=== PATIENT | female | born 1995 | race Hispanic/Latino ===

== ENCOUNTER → 2017-05-23 | Outpatient (CLI) | payer OTHER ==
[~2017-05-23] MED LIST: LAMICTAL XR50 MG PO
--- NOTE | 2017-05-23 18:00 | Diagnostic Imaging Report ---
PROCEDURE:X-RAY LUMBAR SPINE, TWO VIEWS COMPARISON:None. INDICATIONS:BACK APIN FINDINGS: There are five lumbar-type vertebral bodies. The vertebral bodies are well-aligned without evidence of spondylolisthesis. Questionable L5 pars defect. There are no fractures, lytic or blastic lesions. The disc-space heights are well-maintained. The sacroiliac joints are unremarkable. CONCLUSION: No acute abnormalities. Questionable L5 pars defect. Consider oblique views for further evaluation. Dictated by: Luis Holland M.D. on 05/23/2017 at 17:59 Electronically approved by: Luis Holland M.D. on 05/23/2017 at 17:59
--- NOTE | 2017-05-23 18:09 | Diagnostic Imaging Report ---
PROCEDURE:THORACIC SP 3V COMPARISON:None. INDICATIONS:BACK PAIN FINDINGS: No acute displaced fractures or dislocations. Normal alignment. Vertebral body heights and disc spaces are preserved. Visualized lungs and pleural are clear. Soft tissues are unremarkable. CONCLUSION: No acute radiographic abnormalities. Dictated by: Luis Holland M.D. on 05/23/2017 at 18:09 Electronically approved by: Luis Holland M.D. on 05/23/2017 at 18:09
== END ==
LOC: RAD 16:26
PROVIDERS: ATTEND Family Medicine
DX: M54.6 Pain in thoracic spine (principal); M54.5 Low back pain
CPT/HCPCS: 72072; 72100

== ENCOUNTER 2019-10-21 08:59 | Emergency (ER) | payer SELFPAY ==
[~2019-10-21] VITALS: Ht 165.1 cm; Wt 81.6 kg
[2019-10-21] MEDS ORDERED: PANTOPRAZOLE 40 MG 10ML VIAL IV ONE (09:02)
[2019-10-21] MEDS ORDERED: SODIUM CHLORIDE 0.9% 1000ML 1,000 ML IV STA (09:02)
[2019-10-21] MEDS ORDERED: ONDANSETRON HCL INJ 2MG/ML 2ML 2 MG/ML VIAL IV ONE (09:02)
[2019-10-21] MEDS ORDERED: DICYCLOMINE HCL 20 MG/2 ML VIAL IM ONE (09:15)
[2019-10-21 09:32] LABS: BASOPHILS % 0.3 % (0.0-1.0); EOSINOPHILS % 0.4 % (0.0-6.0); HEMATOCRIT 36.9 % (34.2-44.1); HEMOGLOBIN 13.2 g/dL (12.0-16.0); LYMPHOCYTES # (AUTO) 1.6 (1.0-3.2); LYMPHOCYTES % 17.5 % (18.0-39.1); MEAN CORPUSCULAR HEMOGLOBIN 29.7 pg (28-32); MEAN CORPUSCULAR HGB CONC 35.8 g/dL (31-35); MEAN CORPUSCULAR VOLUME 83.1 fL (81-99); MONOCYTES # (AUTO) 0.6 (0.2-0.8); MONOCYTES % 6.5 % (4.4-11.3); NEUTROPHILS # (AUTO) 6.7 (2.1-6.9); NEUTROPHILS % 74.9 % (38.7-80.0); PLATELET COUNT 223 x10e3/uL (140-360); RED BLOOD COUNT 4.44 x10e6/uL (3.6-5.1); RED CELL DISTRIBUTION WIDTH 13.2 % (11.7-14.4)
[2019-10-21 09:43] LABS: CLARITY,URINE CLEAR (CLEAR); COLOR,URINE YELLOW (YELLOW); LEUKOCYTE ESTERASE ,URINE NEGATIVE (NEGATIVE)
[2019-10-21 09:44] LABS: BILIRUBIN,URINE SMALL (NEGATIVE); KETONES,URINE 2+ (NEGATIVE); NITRITE,URINE NEGATIVE (NEGATIVE); PROTEIN,URINE DIPSTICK NEGATIVE (NEGATIVE); URINE UROBILINOGEN 0.2 mg/dL (0.2 - 1)
[2019-10-21 09:45] LABS: BACTERIA,URINE RARE /HPF; EPITHELIAL CELLS,URINE FEW /LPF
[2019-10-21 09:47] LABS: ALANINE AMINOTRANSFERASE 19 IU/L (0-55); ALBUMIN 4.5 g/dL (3.5-5.0); ALBUMIN/GLOBULIN RATIO 1.6 (0.8-2.0); ALKALINE PHOSPHATASE 75 IU/L (40-150); AMYLASE 69 U/L (25-125); BLOOD UREA NITROGEN 7 mg/dL (7-26); BUN/CREATININE RATIO 9 (6-25); CALCIUM 9.6 mg/dL (8.4-10.2); CARBON DIOXIDE 19 mmol/L (22-29); CHLORIDE 110 mmol/L (98-107); CREATINE KINASE 106 IU/L (29-168); CREATININE, SERUM 0.82 mg/dL (0.57-1.11); EST GLOMERULAR FILTRATION RATE > 60 ML/MIN (60-); GLUCOSE 105 mg/dL (74-118); LIPASE 23 U/L (8-78); SODIUM 138 mmol/L (136-145)
[2019-10-21 09:48] LABS: PREGNANCY TEST, URINE NEGATIVE (NEGATIVE)
[2019-10-21] MEDS ORDERED: IOPAMIDOL 370 MG/ML 200 ML INFUS..BTL INJ ONE (10:31)
[2019-10-21] MEDS ORDERED: SODIUM CHLORIDE 0.9% 50ML 50 ML ONE (10:31)
--- NOTE | 2019-10-21 10:41 | Emergency Department Note ---
History of Present Illnes History of Present Illness Chief Complaint: General Medicine Complaints History of Present Illness This is a 24 year old female patient reports abdomen pain with n/v for last two month worsening over last 3 days. Historian: Patient Arrival Mode: Car [employer] Required: No Onset (how long ago): month(s) (2) Location: abdomen Quality: pain Radiation: Reports non-radiation Severity: severe Onset quality: gradual Timing of current episode: intermittent Progression: waxing and waning Chronicity: recurrent Context: Denies recent illness Relieving factors: none Exacerbating factors: eating Associated symptoms: Reports nausea/vomiting; Denies chest pain, Denies shortness of breath Treatments prior to arrival: none Past Medical/Family History Physician Review I have reviewed the patient's past medical and family history. Any updates have been documented here. Past Medical History Recent Fever: No Clinical Suspicion of Infectio: No New/Unexplained Change in Ment: No Other Medical History: ANXIETY, DEPRESSION, BIPOLAR, TUBAL Other Surgery: right fallopian tube removed due to ectopic Social History Smoking Cessation: Former smoker Counseling Performed: Yes Any Illegal Drug Use: Yes (MARIJUANA) TB Exposure/Symptoms: No Physically hurt or threatened: No Family History Family history of heart diseas: No Other Last Tetanus: UNK Any Pre-Existing Lines (PICC,: No Review of Systems Review of Systems Constitutional: Reports no symptoms EENTM: Reports no symptoms Cardiovascular: Reports no symptoms Respiratory: Reports no symptoms Gastrointestinal: Reports as per HPI, Reports abdominal pain, Reports nausea, Reports vomiting Genitourinary: Reports no symptoms Musculoskeletal: Reports no symptoms Integumentary: Reports no symptoms Neurological: Reports no symptoms Psychological: Reports no symptoms Endocrine: Reports no symptoms Hematological/Lymphatic: Reports no symptoms Physical Exam Related Data Allergies: Coded Allergies: No Known Allergies (Unverified , 03/25/13) Triage Vital Signs Vital Signs Date Time Temp Pulse Resp B/P (MAP) Pulse Ox O2 Delivery O2 Flow Rate FiO2 10/21/19 09:08 100 10/21/19 09:08 98.3 89 24 Vital signs reviewed: Yes Physical Exam CONSTITUTIONAL Constitutional: Present well-developed, Present well-nourished HENT HENT: Present normocephalic, Present atraumatic, Present oropharynx clear/moist, Present nose normal HENT L/R: Present left ext ear normal, Present right ext ear normal EYES Eyes: Reports PERRL, Reports conjunctivae normal NECK Neck: Present ROM normal PULMONARY Pulmonary: Present effort normal, Present breath sounds normal CARDIOVASCULAR Cardiovascular: Present regular rhythm, Present heart sounds normal, Present capillary refill normal, Present normal rate GASTROINTESTINAL Abdominal: Present soft, Present bowel sounds normal, Present tender (MOD TENDERNESS OLU AND RLQ WITHOUT R/G, NEGATIVE ALEMAN'S AND NO RUQ TENDERNESS); Absent guarding, Absent rebound GENITOURINARY Genitourinary: Present exam deferred SKIN Skin: Present warm, Present dry MUSCULOSKELETAL Musculoskeletal: Present ROM normal NEUROLOGICAL Neurological: Present alert, Present oriented x 3, Present no gross motor or sensory deficits PSYCHOLOGICAL Psychological: Present mood/affect normal, Present judgement normal Results Laboratory Result Diagram: 10/21/1916 10/21/19 0916 Laboratory Laboratory Tests Test 10/21/19 09:16 White Blood Count 8.92 x10e3/uL (4.8-10.8) Red Blood Count 4.44 x10e6/uL (3.6-5.1) Hemoglobin 13.2 g/dL (12.0-16.0) Hematocrit 36.9 % (34.2-44.1) Mean Corpuscular Volume 83.1 fL (81-99) Mean Corpuscular Hemoglobin 29.7 pg (28-32) Mean Corpuscular Hemoglobin Concent 35.8 g/dL (31-35) Red Cell Distribution Width 13.2 % (11.7-14.4) Platelet Count 223 x10e3/uL (140-360) Neutrophils (%) (Auto) 74.9 % (38.7-80.0) Lymphocytes (%) (Auto) 17.5 % (18.0-39.1) Monocytes (%) (Auto) 6.5 % (4.4-11.3) Eosinophils (%) (Auto) 0.4 % (0.0-6.0) Basophils (%) (Auto) 0.3 % (0.0-1.0) Neutrophils # (Auto) 6.7 (2.1-6.9) Lymphocytes # (Auto) 1.6 (1.0-3.2) Monocytes # (Auto) 0.6 (0.2-0.8) Eosinophils # (Auto) 0.0 (0.0-0.4) Basophils # (Auto) 0.0 (0.0-0.1) Absolute Immature Granulocyte (auto 0.04 x10e3/uL (0-0.1) Urine Color Yellow (YELLOW) Urine Clarity Clear (CLEAR) Urine pH 7.5 (5 - 7) Urine Specific [place] 1.020 (1.010-1.025) Urine Protein Negative (NEGATIVE) Urine Glucose (UA) Negative (NEGATIVE) Urine Ketones 2+ (NEGATIVE) Urine Blood Trace (NEGATIVE) Urine Nitrite Negative (NEGATIVE) Urine Bilirubin Small (NEGATIVE) Urine Urobilinogen 0.2 mg/dL (0.2 - 1) Urine Leukocyte Esterase Negative (NEGATIVE) Urine RBC 6-10 /HPF (0-5) Urine WBC 6-10 /HPF (0-5) Urine Epithelial Cells Few /LPF (NONE) Urine Bacteria Rare /HPF (NONE) Urine Test Negative (NEGATIVE) Sodium Level 138 mmol/L (136-145) Potassium Level 4.0 mmol/L (3.5-5.1) Chloride Level 110 mmol/L (98-107) Carbon Dioxide Level 19 mmol/L (22-29) Anion Gap 13.0 mmol/L (8-16) Blood Urea Nitrogen 7 mg/dL (7-26) Creatinine 0.82 mg/dL (0.57-1.11) Estimat Glomerular Filtration Rate > 60 ML/MIN (60-) BUN/Creatinine Ratio 9 (6-25) Glucose Level 105 mg/dL (74-118) Calcium Level 9.6 mg/dL (8.4-10.2) Total Bilirubin 0.7 mg/dL (0.2-1.2) Aspartate Amino Transf (AST/SGOT) 16 IU/L (5-34) Alanine Aminotransferase (ALT/SGPT) 19 IU/L (0-55) Alkaline Phosphatase 75 IU/L (40-150) Creatine Kinase 106 IU/L (29-168) Creatine Kinase MB 1.30 ng/mL (0-5.0) Troponin I < 0.001 ng/mL (0-0.300) Total Protein 7.4 g/dL (6.5-8.1) Albumin 4.5 g/dL (3.5-5.0) Globulin 2.9 g/dL (2.3-3.5) Albumin/Globulin Ratio 1.6 (0.8-2.0) Amylase Level 69 U/L (25-125) Lipase 23 U/L (8-78) Lab results reviewed: Yes Imaging Imaging results reviewed: Yes Impressions EXAM: CT Abdomen and Pelvis WITH contrast INDICATION: rlq olu abd pain COMPARISON: None. TECHNIQUE: Abdomen and pelvis were scanned utilizing a multidetector helical scanner from the lung base to the pubic symphysis after administration of IV contrast. Coronal and sagittal reformations were obtained. Dose modulation, iterative reconstruction, and/or weight based adjustment of the mA/kV was utilized to reduce the radiation dose to as low as reasonably achievable. Routine protocol was performed. Scan was performed when during portal venous phase. IV CONTRAST: 150 mL of Omnipaque 300 ORAL CONTRAST: Water COMPLICATIONS: None RADIATION DOSE: Total DLP: 318.6 mGy-cm Estimated effective dose: (DLP x 0.015 x size factor) mSv CTDIvol has been reviewed. It is below the limits set by the Radiation Protocol Committee (RPC). FINDINGS: LINES and TUBES: None. LOWER THORAX: There is a 4 mm pulmonary nodule in right lower lobe (series 2, image 17) is nonspecific. HEPATOBILIARY: No focal hepatic lesions. No biliary ductal dilation. GALLBLADDER: No radio-opaque stones or sludge. No gallbladder wall thickening. SPLEEN: No splenomegaly. No focal splenic lesion. PANCREAS: No focal masses or ductal dilatation. ADRENALS: No adrenal nodules KIDNEYS/URETERS: Kidneys enhance symmetrically. No hydronephrosis. No cystic or solid mass lesions. No stones. GI TRACT: No abnormal distention, wall thickening, or evidence of bowel obstruction. Appendix is normal. PELVIC ORGANS/BLADDER: The bladder is unremarkable. Bilateral adnexal cystic structure could be physiologic for age. LYMPH NODES: No lymphadenopathy. VESSELS: No aortic aneurysm or dissection. PERITONEUM / RETROPERITONEUM: No free air or fluid. BONES: Unremarkable. SOFT TISSUES: Unremarkable. IMPRESSION: 1. Normal appendix. No CT findings to correlate with patient's right lower quadrant pain 2. A 4 mm pulmonary nodule in right lower lobe is nonspecific, could be infectious in etiology.. Please correlate with patient's lung symptoms and risk factors. Signed by: Catracho Gonsalez MD on 10/21/2019 11:13 AM Assessment & Plan Medical Decision Making MDM ABD PAIN, N/V WITH TENDERNESS OLU AND RLQ - CHECK CBC, CHEM, BEN/LIPASE, UA, PREG, CT ABD/PELVIS - R/O CHOLECYSTITIS, CHOLELITHIASIS, PANCREATITIS, APPENDICITIS, , DEHYDRATION, RENAL INSUFF, ELECTROLYTE ABNL Reassessment Reassessment PT IMPROVED, FEELS WELL. DC HOME, BENTYL/ZOFRAN, OTC PEPCID. F/U PCP AND DR Flory BERGER Assessment & Plan Final Impression: (1) Abdominal pain (2) Nausea & vomiting Depart Disposition: HOME, SELF-CARE Last Vital Signs Date Time Temp Pulse Resp B/P (MAP) Pulse Ox O2 Delivery O2 Flow Rate FiO2 10/21/19 09:08 98.3 89 24 142/112 100 Home Meds Reported Medications Lamotrigine (LAMICTAL XR) 50 Mg Tab.er.24, 50 MG PO BID 03/25/13 Medications in the ED Pantoprazole Sodium 40 mg ONCE ONCE IV Last administered on 10/21/19at 09:57; Admin Dose 40 MG; Start 10/21/19 at 09:02; Stop 10/21/19 at 09:31; Status DC Ondansetron HCl 4 mg ONCE ONCE IV Last administered on 10/21/19at 09:57; Admin Dose 4 MG; Start 10/21/19 at 09:02; Stop 10/21/19 at 09:31; Status DC Sodium Chloride 1,000 ml @ 0 mls/hr Q0M STAT IV Last administered on 10/21/19at 09:57; Admin Dose 999 MLS/HR; Start 10/21/19 at 09:02; Stop 10/21/19 at 09:27; Status DC Dicyclomine HCl 20 mg ONCE ONCE IM Last administered on 10/21/19at 09:57; Admin Dose 20 MG; Start 10/21/19 at 09:15; Stop 10/21/19 at 09:27; Status DC SKY PUTNAM MD Oct 21, 2019 10:40
--- NOTE | 2019-10-21 11:16 | Diagnostic Imaging Report ---
EXAM: CT Abdomen and Pelvis WITH contrast INDICATION: rlq olu abd pain COMPARISON: None. TECHNIQUE: Abdomen and pelvis were scanned utilizing a multidetector helical scanner from the lung base to the pubic symphysis after administration of IV contrast. Coronal and sagittal reformations were obtained. Dose modulation, iterative reconstruction, and/or weight based adjustment of the mA/kV was utilized to reduce the radiation dose to as low as reasonably achievable. Routine protocol was performed. Scan was performed when during portal venous phase. IV CONTRAST: 150 mL of Omnipaque 300 ORAL CONTRAST: Water COMPLICATIONS: None RADIATION DOSE: Total DLP: 318.6 mGy-cm Estimated effective dose: (DLP x 0.015 x size factor) mSv CTDIvol has been reviewed. It is below the limits set by the Radiation Protocol Committee (RPC). FINDINGS: LINES and TUBES: None. LOWER THORAX: There is a 4 mm pulmonary nodule in right lower lobe (series 2, image 17) is nonspecific. HEPATOBILIARY: No focal hepatic lesions. No biliary ductal dilation. GALLBLADDER: No radio-opaque stones or sludge. No gallbladder wall thickening. SPLEEN: No splenomegaly. No focal splenic lesion. PANCREAS: No focal masses or ductal dilatation. ADRENALS: No adrenal nodules KIDNEYS/URETERS: Kidneys enhance symmetrically. No hydronephrosis. No cystic or solid mass lesions. No stones. GI TRACT: No abnormal distention, wall thickening, or evidence of bowel obstruction. Appendix is normal. PELVIC ORGANS/BLADDER: The bladder is unremarkable. Bilateral adnexal cystic structure could be physiologic for age. LYMPH NODES: No lymphadenopathy. VESSELS: No aortic aneurysm or dissection. PERITONEUM / RETROPERITONEUM: No free air or fluid. BONES: Unremarkable. SOFT TISSUES: Unremarkable. IMPRESSION: 1. Normal appendix. No CT findings to correlate with patient's right lower quadrant pain 2. A 4 mm pulmonary nodule in right lower lobe is nonspecific, could be infectious in etiology.. Please correlate with patient's lung symptoms and risk factors. Signed by: Catracho Gonsalez MD on 10/21/2019 11:13 AM
== END 2019-10-21 11:56 | disposition home or self-care (01) ==
LOC: ER 09:03
DX: R10.31 Right lower quadrant pain (principal); R11.2 Nausea with vomiting, unspecified; F41.9 Anxiety disorder, unspecified; F31.9 Bipolar disorder, unspecified
CPT/HCPCS: 36415; 74177; 80053; 81001; 81025; 82150; 82550; 82553; 83690; 84484; 85025; 87086; 99283; C9113; J0500; J2405; J7030; Q9967

== ENCOUNTER 2019-11-27 03:37 | Inpatient (IN) | payer OTHER, SELFPAY ==
[~2019-11-27] VITALS: Ht 165.1 cm; Wt 77.1 kg
[2019-11-27] MEDS ORDERED: KETOROLAC TROMETHAMINE 30 MG/ML VIAL IV STA (03:43)
[2019-11-27] MEDS ORDERED: CEFTRIAXONE SOD 1 GM/NS 50 ML 50 ML IV ONE (03:45)
[2019-11-27] MEDS ORDERED: ACETAMINOPHEN 325 MG TAB PO ONE (03:45)
[2019-11-27] MEDS ORDERED: SODIUM CHLORIDE 0.9% 1000ML 1,000 ML IV ONE (03:45)
--- NOTE | 2019-11-27 03:53 | Emergency Department Note ---
History of Present Illnes History of Present Illness Chief Complaint: General Medicine Complaints History of Present Illness This is a 24 year old female PT WITH FEVER, BODY ACHES, LOWER ABD PAIN AND BACK PAIN SINCE LAST NIGHT, . Historian: Patient Arrival Mode: Car Onset (how long ago): day(s) (1) Location: LOWER ABD Quality: PAIN FEVER Radiation: Reports back Severity: moderate Onset quality: gradual Duration (how long): day(s) (1) Timing of current episode: constant Progression: worsening Context: Denies recent illness, Denies recent surgery, Denies trauma/injury Relieving factors: none Exacerbating factors: none Associated symptoms: Reports fever/chills, Reports other (ABD PAIN RLQ) Treatments prior to arrival: none Past Medical/Family History Physician Review I have reviewed the patient's past medical and family history. Any updates have been documented here. Past Medical History Recent Fever: Yes Clinical Suspicion of Infectio: No New/Unexplained Change in Ment: No Past Medical History: Anxiety, Depression Other Medical History: ANXIETY, DEPRESSION, BIPOLAR, TUBAL Other Surgery: right fallopian tube removed due to ectopic Social History Smoking Cessation: Never Smoker Counseling Performed: No Alcohol Use: None Any Illegal Drug Use: Yes (MARIJUANA) Physically hurt or threatened: No Other Last Tetanus: UNK Any Pre-Existing Lines (PICC,: No Review of Systems Review of Systems Constitutional: Reports as per HPI EENTM: Reports no symptoms Cardiovascular: Reports no symptoms Respiratory: Reports no symptoms Gastrointestinal: Reports as per HPI Genitourinary: Reports no symptoms Musculoskeletal: Reports no symptoms Integumentary: Reports no symptoms Neurological: Reports no symptoms Psychological: Reports no symptoms Endocrine: Reports no symptoms Hematological/Lymphatic: Reports no symptoms Physical Exam Related Data Allergies: Coded Allergies: No Known Allergies (Unverified , 03/25/13) Triage Vital Signs Vital Signs Date Time Temp Pulse Resp B/P (MAP) Pulse Ox O2 Delivery O2 Flow Rate FiO2 11/27/19 03:41 101.5 128 20 134/84 98 Room Air Vital signs reviewed: Yes Physical Exam CONSTITUTIONAL Constitutional: Present well-developed, Present well-nourished; Absent distressed HENT HENT: Present normocephalic, Present atraumatic, Present oropharynx clear/moist, Present nose normal HENT L/R: Present left ext ear normal, Present right ext ear normal EYES Eyes: Reports PERRL, Reports conjunctivae normal NECK Neck: Present ROM normal PULMONARY Pulmonary: Present effort normal, Present breath sounds normal CARDIOVASCULAR Cardiovascular: Present regular rhythm, Present heart sounds normal, Present capillary refill normal, Present tachycardia (120) GASTROINTESTINAL Abdominal: Present soft, Present bowel sounds normal, Present tender (SUPRAPUBIC, RLQ); Absent guarding, Absent mass, Absent rebound GENITOURINARY Genitourinary: Present exam deferred SKIN Skin: Present warm, Present dry MUSCULOSKELETAL Musculoskeletal: Present ROM normal NEUROLOGICAL Neurological: Present alert, Present oriented x 3, Present no gross motor or sensory deficits PSYCHOLOGICAL Psychological: Present mood/affect normal, Present judgement normal Results Laboratory Laboratory Laboratory Tests Test 11/27/19 03:50 11/27/19 03:45 Urine Color Yellow (YELLOW) Urine Clarity Cloudy (CLEAR) Urine pH 7 (5 - 7) Urine Specific [place] 1.020 (1.010-1.025) Urine Protein 2+ (NEGATIVE) Urine Glucose (UA) Negative (NEGATIVE) Urine Ketones Trace (NEGATIVE) Urine Blood Small (NEGATIVE) Urine Nitrite Negative (NEGATIVE) Urine Bilirubin Negative (NEGATIVE) Urine Urobilinogen 0.2 mg/dL (0.2 - 1) Urine Leukocyte Esterase Small (NEGATIVE) Urine RBC 6-10 /HPF (0-5) Urine WBC >50 /HPF (0-5) Urine Epithelial Cells Moderate /LPF (NONE) Urine Bacteria Many /HPF (NONE) Urine Test Negative (NEGATIVE) White Blood Count 18.72 x10e3/uL (4.8-10.8) Red Blood Count 4.64 x10e6/uL (3.6-5.1) Hemoglobin 13.8 g/dL (12.0-16.0) Hematocrit 39.1 % (34.2-44.1) Mean Corpuscular Volume 84.3 fL (81-99) Mean Corpuscular Hemoglobin 29.7 pg (28-32) Mean Corpuscular Hemoglobin Concent 35.3 g/dL (31-35) Red Cell Distribution Width 13.3 % (11.7-14.4) Platelet Count 205 x10e3/uL (140-360) Neutrophils (%) (Auto) 88.9 % (38.7-80.0) Lymphocytes (%) (Auto) 4.1 % (18.0-39.1) Monocytes (%) (Auto) 6.1 % (4.4-11.3) Eosinophils (%) (Auto) 0.0 % (0.0-6.0) Basophils (%) (Auto) 0.2 % (0.0-1.0) Neutrophils # (Auto) 16.7 (2.1-6.9) Lymphocytes # (Auto) 0.8 (1.0-3.2) Monocytes # (Auto) 1.1 (0.2-0.8) Eosinophils # (Auto) 0.0 (0.0-0.4) Basophils # (Auto) 0.0 (0.0-0.1) Absolute Immature Granulocyte (auto 0.13 x10e3/uL (0-0.1) Sodium Level 136 mmol/L (136-145) Potassium Level 4.0 mmol/L (3.5-5.1) Chloride Level 104 mmol/L (98-107) Carbon Dioxide Level 18 mmol/L (22-29) Anion Gap 18.0 mmol/L (8-16) Blood Urea Nitrogen 8 mg/dL (7-26) Creatinine 0.84 mg/dL (0.57-1.11) Estimat Glomerular Filtration Rate > 60 ML/MIN (60-) BUN/Creatinine Ratio 10 (6-25) Glucose Level 138 mg/dL (74-118) Lactic Acid Level 1.7 mmol/L (0.5-2.0) Calcium Level 9.8 mg/dL (8.4-10.2) Total Bilirubin 0.6 mg/dL (0.2-1.2) Aspartate Amino Transf (AST/SGOT) 18 IU/L (5-34) Alanine Aminotransferase (ALT/SGPT) 20 IU/L (0-55) Alkaline Phosphatase 83 IU/L (40-150) Total Protein 8.2 g/dL (6.5-8.1) Albumin 4.9 g/dL (3.5-5.0) Globulin 3.3 g/dL (2.3-3.5) Albumin/Globulin Ratio 1.5 (0.8-2.0) Lab results reviewed: Yes Imaging Imaging results reviewed: Yes Impressions Procedure: [id number] CT/CT ABDOMEN/PELVIS W Exam Date: 11/27/19 Exam Time: 0430 REPORT STATUS: Signed EXAM: CT Abdomen and Pelvis WITH contrast INDICATION: ^RLQ PAIN, FEVER ^[id number] ^0430 COMPARISON: CT dated 10/21/2019 TECHNIQUE: Abdomen and pelvis were scanned utilizing a multidetector helical scanner from the lung base to the pubic symphysis after administration of IV contrast. Coronal and sagittal reformations were obtained. Dose modulation, iterative reconstruction, and/or weight based adjustment of the mA/kV was utilized to reduce the radiation dose to as low as reasonably achievable. Routine protocol was performed. Scan was performed when during portal venous phase. IV CONTRAST: 100 mL of Isovue 370 ORAL CONTRAST: None COMPLICATIONS: None RADIATION DOSE: Total DLP: 328.08 mGy*cm Estimated effective dose: (DLP x 0.015 x size factor) mSv CTDIvol has been reviewed. It is below the limits set by the Radiation Protocol Committee (RPC). FINDINGS: LINES and TUBES: None. LOWER THORAX: 5 mm right lung base nodule, previously 4 mm. HEPATOBILIARY: No focal hepatic lesions. No biliary ductal dilation. GALLBLADDER: No radio-opaque stones or sludge. No wall thickening. SPLEEN: No splenomegaly. PANCREAS: No focal masses or ductal dilatation. ADRENALS: No adrenal nodules KIDNEYS/URETERS: Hypoenhancement of the right renal superior pole with mild adjacent fat stranding. No hydronephrosis. No cystic or solid mass lesions. No stones. GI TRACT: No abnormal distention, wall thickening, or evidence of bowel obstruction. Appendix is normal. PELVIC ORGANS/BLADDER: 4.4 cm left adnexal cyst. Bladder wall thickening, likely due to underdistention. LYMPH NODES: No lymphadenopathy. VESSELS: Unremarkable. PERITONEUM / RETROPERITONEUM: No free air. Trace pelvic free fluid, likely physiologic. BONES: Unremarkable. SOFT TISSUES: Unremarkable. IMPRESSION: 1. Right pyelonephritis. 2. Not significantly changed nonspecific right lung base nodule. 3. 4.4 cm left adnexal cyst. If clinically indicated, this can be further evaluated with pelvic ultrasound. Signed by: Dr. Natanael Giles MD on 11/27/2019 5:43 AM Dictated By: NATANAEL GILES MD 2 Transcribed By: STEVEN on 11/27/19542 COPY TO: CARTER JAMES MD~ Assessment & Plan Medical Decision Making MDM PT WITH RLQ PAIN, FEVER, CHILLS CBC, CMP, LACTIC ACID, BLOOD CULTURES, UA, PREG TEST, CT ABD.PELVIS ORDERED TO EVAL FOR LEUKOCYTOSIS, SEPSIS, UTI, PYELONEPHRITIS, KIDNEY STONE, APPENDICITIS, ELECTROLYTE ABNORMALITY TYLENOL 975 MG PO ORDERED ROCEPHIN 1 GRAM IV ORDERED TORADOL 30 MG IV ORDERED ROCEPHIN 1 GRAM IV ORDERED NS 1 LITER BOLUS IV ORDERED I SPOKE WITH DR BOBO ADMIT INPATIENT Assessment & Plan Final Impression: (1) Pyelonephritis (2) Leukocytosis Depart Disposition: ADMITTED Last Vital Signs Date Time Temp Pulse Resp B/P (MAP) Pulse Ox O2 Delivery O2 Flow Rate FiO2 11/27/19 03:41 101.5 128 20 134/84 98 Room Air Home Meds Reported Medications Lamotrigine (LAMICTAL XR) 50 Mg Tab.er.24, 50 MG PO BID 03/25/13 Medications in the ED Acetaminophen 975 mg ONCE ONCE PO ; Start 11/27/19 at 03:45; Stop 11/27/19 at 03:46; Status UNV Ceftriaxone Sodium 50 ml @ 100 mls/hr ONCE ONCE IV ; Start 11/27/19 at 03:45; Stop 11/27/19 at 04:14; Status UNV Sodium Chloride 1,000 ml @ 999 mls/hr Q1H1M ONCE IV ; Start 11/27/19 at 03:45; Stop 11/27/19 at 04:45 Ketorolac Tromethamine 30 mg ONCE STAT IV ; Start 11/27/19 at 03:43; Stop 11/27/19 at 03:44; Status UNV CARTER JAMES MD Nov 27, 2019 03:53
[2019-11-27 03:58] LABS: BASOPHILS % 0.2 % (0.0-1.0); HEMATOCRIT 39.1 % (34.2-44.1); HEMOGLOBIN 13.8 g/dL (12.0-16.0); LYMPHOCYTES # (AUTO) 0.8 (1.0-3.2); LYMPHOCYTES % 4.1 % (18.0-39.1); MEAN CORPUSCULAR HEMOGLOBIN 29.7 pg (28-32); MEAN CORPUSCULAR HGB CONC 35.3 g/dL (31-35); MEAN CORPUSCULAR VOLUME 84.3 fL (81-99); MONOCYTES # (AUTO) 1.1 (0.2-0.8); MONOCYTES % 6.1 % (4.4-11.3); NEUTROPHILS # (AUTO) 16.7 (2.1-6.9); NEUTROPHILS % 88.9 % (38.7-80.0); PLATELET COUNT 205 x10e3/uL (140-360); RED BLOOD COUNT 4.64 x10e6/uL (3.6-5.1); RED CELL DISTRIBUTION WIDTH 13.3 % (11.7-14.4)
[2019-11-27 04:00] LABS: BILIRUBIN,URINE NEGATIVE (NEGATIVE); CLARITY,URINE CLOUDY (CLEAR); COLOR,URINE YELLOW (YELLOW); LEUKOCYTE ESTERASE ,URINE SMALL (NEGATIVE); NITRITE,URINE NEGATIVE (NEGATIVE); PROTEIN,URINE DIPSTICK 2+ (NEGATIVE); URINE UROBILINOGEN 0.2 mg/dL (0.2 - 1)
[2019-11-27 04:01] LABS: KETONES,URINE TRACE (NEGATIVE)
[2019-11-27 04:03] LABS: PREGNANCY TEST, URINE NEGATIVE (NEGATIVE)
[2019-11-27 04:05] LABS: BACTERIA,URINE MANY /HPF; EPITHELIAL CELLS,URINE MODERATE /LPF; WBC,URINE (MAN) >50 /HPF (0-5)
[2019-11-27 04:09] LABS: ALBUMIN 4.9 g/dL (3.5-5.0)
[2019-11-27 04:18] LABS: ALANINE AMINOTRANSFERASE 20 IU/L (0-55); ALBUMIN/GLOBULIN RATIO 1.5 (0.8-2.0); ALKALINE PHOSPHATASE 83 IU/L (40-150); BLOOD UREA NITROGEN 8 mg/dL (7-26); BUN/CREATININE RATIO 10 (6-25); CALCIUM 9.8 mg/dL (8.4-10.2); CARBON DIOXIDE 18 mmol/L (22-29); CHLORIDE 104 mmol/L (98-107); CREATININE, SERUM 0.84 mg/dL (0.57-1.11); EST GLOMERULAR FILTRATION RATE > 60 ML/MIN (60-); GLUCOSE 138 mg/dL (74-118); SODIUM 136 mmol/L (136-145)
[2019-11-27] MEDS ORDERED: IOPAMIDOL 370 MG/ML 200 ML INFUS..BTL INJ ONE (04:33)
[2019-11-27] MEDS ORDERED: SODIUM CHLORIDE 0.9% 50ML 50 ML ONE (04:34)
--- NOTE | 2019-11-27 05:47 | Diagnostic Imaging Report ---
EXAM: CT Abdomen and Pelvis WITH contrast INDICATION: ^RLQ PAIN, FEVER ^[id number] ^0430 COMPARISON: CT dated 10/21/2019 TECHNIQUE: Abdomen and pelvis were scanned utilizing a multidetector helical scanner from the lung base to the pubic symphysis after administration of IV contrast. Coronal and sagittal reformations were obtained. Dose modulation, iterative reconstruction, and/or weight based adjustment of the mA/kV was utilized to reduce the radiation dose to as low as reasonably achievable. Routine protocol was performed. Scan was performed when during portal venous phase. IV CONTRAST: 100 mL of Isovue 370 ORAL CONTRAST: None COMPLICATIONS: None RADIATION DOSE: Total DLP: 328.08 mGy*cm Estimated effective dose: (DLP x 0.015 x size factor) mSv CTDIvol has been reviewed. It is below the limits set by the Radiation Protocol Committee (RPC). FINDINGS: LINES and TUBES: None. LOWER THORAX: 5 mm right lung base nodule, previously 4 mm. HEPATOBILIARY: No focal hepatic lesions. No biliary ductal dilation. GALLBLADDER: No radio-opaque stones or sludge. No wall thickening. SPLEEN: No splenomegaly. PANCREAS: No focal masses or ductal dilatation. ADRENALS: No adrenal nodules KIDNEYS/URETERS: Hypoenhancement of the right renal superior pole with mild adjacent fat stranding. No hydronephrosis. No cystic or solid mass lesions. No stones. GI TRACT: No abnormal distention, wall thickening, or evidence of bowel obstruction. Appendix is normal. PELVIC ORGANS/BLADDER: 4.4 cm left adnexal cyst. Bladder wall thickening, likely due to underdistention. LYMPH NODES: No lymphadenopathy. VESSELS: Unremarkable. PERITONEUM / RETROPERITONEUM: No free air. Trace pelvic free fluid, likely physiologic. BONES: Unremarkable. SOFT TISSUES: Unremarkable. IMPRESSION: 1. Right pyelonephritis. 2. Not significantly changed nonspecific right lung base nodule. 3. 4.4 cm left adnexal cyst. If clinically indicated, this can be further evaluated with pelvic ultrasound. Signed by: Dr. Natanael Giles MD on 11/27/2019 5:43 AM
[2019-11-27] MEDS ORDERED: ONDANSETRON HCL INJ 2MG/ML 2ML 2 MG/ML VIAL IV PRN (06:00)
[2019-11-27] MEDS ORDERED: MORPHINE SULFATE 2 MG/ML SYR 1ML IV PRN (06:00)
[2019-11-27] MEDS ORDERED: CEFTRIAXONE SOD 1 GM/NS 50 ML 50 ML IV SCH ×2 (06:00→20:00)
[2019-11-27] MEDS ORDERED: MORPHINE SULFATE INJ 4 MG/ML INJ 1ML ONE (06:22)
[2019-11-27] MEDS: SODIUM CHLORIDE 0.9% 1000ML 1,000 ML IV SCH ×2 (06:28→14:44)
--- NOTE | 2019-11-27 06:55 | NUR ---
bedside report received from Miguel Angel PABLO, pt is [id number], vital signs WNL, pain has improved significantly, no distress noted , side rails x 2, bed in lowest position, call light within reach
--- NOTE | 2019-11-27 06:56 | NUR ---
WALKING ROUNDS WITH XANDER PABLO
[2019-11-27] MEDS ORDERED: HYDROMORPHONE 1MG/1ML INJ IV NR (09:00)
--- NOTE | 2019-11-27 12:06 | NUR ---
regular diet tray requested from kitchen
[2019-11-27 13:55] VITALS: BP 128/88
--- NOTE | 2019-11-27 13:55 | NUR ---
bedside handoff to Teresa PABLO, was notified that patient's temperature was 100.2 prior to leaving the ED
--- NOTE | 2019-11-27 13:55 | NUR ---
RECEIVED REPORT FROM DRILLER BRAKE LINING. PT AWAKE, ALERT, AMBULATING EASILY AROUND THE ROOM, NO S/S DISTRESS. IN STABLE CONDITION.
[2019-11-27] MEDS ORDERED: CEFEPIME HCL 1 GM VIAL IV SCH (14:00)
[2019-11-27] MEDS: ACETAMINOPHEN 325 MG TAB PO PRN (14:21)
[2019-11-27 14:22] VITALS: BP 116/83
[2019-11-27] MEDS: CEFEPIME 1GM/NS 0.9% 50 ML 50 ML IV SCH ×2 (14:44→21:24)
[2019-11-27] MEDS ORDERED: DOCUSATE SODIUM 100 MG CAP PO PRN (15:00)
[2019-11-27] MEDS: IBUPROFEN 600 MG TAB PO PRN (15:54)
[2019-11-27 16:26] VITALS: BP 131/74
--- NOTE | 2019-11-27 19:19 | NUR ---
bedside shift report given to PM nurse. pt awake, alert, in stable condition.
[2019-11-27 20:00] VITALS: BP 109/71
[2019-11-27 21:00] VITALS: BP 109/71
[2019-11-27] MEDS: TRAMADOL HCL 50 MG TAB PO PRN (21:17)
[2019-11-27] MEDS: KETOROLAC TROMETHAMINE 30 MG/ML VIAL IV PRN (23:41)
[2019-11-28] VITALS (7 sets, daily range): BP systolic 114–134; BP diastolic 74–89
[2019-11-28] MEDS: IBUPROFEN 600 MG TAB PO PRN ×3 (04:00→21:24)
--- NOTE | 2019-11-28 04:05 | History and Physical ---
HISTORY OF PRESENT ILLNESS: This is a 24-year-old female, who came into the ED with complaints of right-sided flank pain and underlying dysuria. The patient's cultures had similar findings in the past with underlying pyelonephritis and UTI. She denies any recent trauma. She denies picking up of any heavy objects. The patient reports her flank pain that radiates from the right side down to her lower abdomen. She denies any chest pain, palpitation, nausea, or vomiting. She does have fever, chills. REVIEW OF SYSTEMS: Pertinent positives: Right-sided flank pain with underlying dysuria. The rest of the 14-point systems are reviewed with the patient and are negative. ALLERGIES: NO KNOWN DRUG ALLERGIES. HOME MEDICATIONS: She takes Lamictal. PAST MEDICAL HISTORY: History of seizures. PAST SURGICAL HISTORY: Reports none. PAST FAMILY HISTORY: None. PAST SOCIAL HISTORY: No drugs. No alcohol. PHYSICAL EXAMINATION: VITAL SIGNS: Temperature 98.6, pulse 82, respirations 20, blood pressure 100/78, and oxygen saturation is 100% on room air. GENERAL: Not in acute distress. Alert and oriented x3. Cooperative on examination. HEENT: Head; normocephalic and atraumatic. Eyes; pupils are equal, round, and reactive to light bilaterally extraocular movements are intact. Throat, no evidence of erythema or exudate in the posterior pharynx. Has poor dentition. NECK: Supple. Good range of motion. PULMONARY: Clear to auscultation bilaterally. No wheezing, rales, rhonchi, no crackles appreciated. CARDIOVASCULAR: Positive S1 and S2. No murmurs, rubs, or gallops. GI: Abdomen is soft, nondistended, and nontender to palpation. Bowel sounds present. MUSCULOSKELETAL: Strength is 5/5 throughout. SKIN: Tender to palpation in the left flank area in the right lower quadrant of the abdomen. LABORATORY STUDIES: White count 18, hemoglobin 13, hematocrit 29, and platelets 205. Chemistry; sodium 136, potassium 4.1, within normal range. Albumin is 4.9. Urinalysis consistent with a UTI . Urine cultures collected. CT of the abdomen and pelvis . IMPRESSION: 1. Right pyelonephritis with underlying urinary tract infection. 2. Nausea with decreased oral intake. 3. Leukocytosis, secondary to pyelonephritis. 4. Sepsis secondary to pyelonephritis with leukocytosis. 5. Right-sided flank pain. PLAN: At this time, continue with IV antibiotics. Add pain control with pain medication. We will also add some Toradol for anti-inflammatory properties. Get labs in the morning. Put on Lovenox for DVT prophylaxis. Continue with IV cefepime. Monitor blood and urine culture. Plan of care discussed with the patient at bedside, it seems to be more of a pyelonephritis at this time. Get morning labs. MD DU Mendez/EMBER /[id number]
[2019-11-28] MEDS: SODIUM CHLORIDE 0.9% 1000ML 1,000 ML IV SCH ×3 (04:21→21:23)
[2019-11-28] MEDS: CEFEPIME 1GM/NS 0.9% 50 ML 50 ML IV SCH (05:20)
[2019-11-28 06:42] LABS: BASOPHILS # (AUTO) 0.1 (0.0-0.1); BASOPHILS % 0.3 % (0.0-1.0); EOSINOPHILS % 0.1 % (0.0-6.0); HEMATOCRIT 32.8 % (34.2-44.1); HEMOGLOBIN 11.3 g/dL (12.0-16.0); LYMPHOCYTES % 5.6 % (18.0-39.1); MEAN CORPUSCULAR HEMOGLOBIN 29.7 pg (28-32); MEAN CORPUSCULAR HGB CONC 34.5 g/dL (31-35); MEAN CORPUSCULAR VOLUME 86.3 fL (81-99); MONOCYTES # (AUTO) 1.5 (0.2-0.8); MONOCYTES % 8.5 % (4.4-11.3); NEUTROPHILS # (AUTO) 15.4 (2.1-6.9); NEUTROPHILS % 84.9 % (38.7-80.0); PLATELET COUNT 156 x10e3/uL (140-360); RED CELL DISTRIBUTION WIDTH 13.4 % (11.7-14.4)
[2019-11-28] MEDS: KETOROLAC TROMETHAMINE 30 MG/ML VIAL IV PRN ×2 (06:42→16:21)
--- NOTE | 2019-11-28 07:05 | NUR ---
bedside shift report received from PM nurse. pt awake, alert, in stable condition, oriented X3, voices no complaints at this time.
[2019-11-28 07:12] LABS: ALANINE AMINOTRANSFERASE 17 IU/L (0-55); ALBUMIN 3.8 g/dL (3.5-5.0); ALBUMIN/GLOBULIN RATIO 1.4 (0.8-2.0); ALKALINE PHOSPHATASE 66 IU/L (40-150); ANION GAP 14.8 mmol/L (8-16); BLOOD UREA NITROGEN 5 mg/dL (7-26); BUN/CREATININE RATIO 6 (6-25); CALCIUM 8.5 mg/dL (8.4-10.2); CARBON DIOXIDE 17 mmol/L (22-29); CHLORIDE 111 mmol/L (98-107); CREATININE, SERUM 0.77 mg/dL (0.57-1.11); EST GLOMERULAR FILTRATION RATE > 60 ML/MIN (60-); GLUCOSE 153 mg/dL (74-118); POTASSIUM 3.8 mmol/L (3.5-5.1); SODIUM 139 mmol/L (136-145)
--- NOTE | 2019-11-28 07:46 | NUR ---
Patient endorsed to next shift for continuity of care.
[2019-11-28] MEDS: LAMOTRIGINE 50 MG PO SCH ×2 (09:00→16:21)
[2019-11-28] MEDS: ACETAMINOPHEN 325 MG TAB PO PRN ×2 (10:08→16:22)
[2019-11-28] MEDS: TRAMADOL HCL 50 MG TAB PO PRN (10:11)
[2019-11-28] MEDS: ONDANSETRON HCL INJ 2MG/ML 2ML 2 MG/ML VIAL IV PRN ×2 (11:36→17:57)
[2019-11-28] MEDS: MEROPENEM 500MG/ NS 50ML 50 ML IV SCH ×3 (16:21→21:21)
[2019-11-28] MEDS: ENOXAPARIN SOD INJ 40 MG/0.4 ML SYR SC SCH (16:21)
--- NOTE | 2019-11-28 21:30 | NUR ---
Unable to administer IV Merrem at scheduled time due to loss of IV access. Several unsuccessful attempts made to restart IV from nurse, charge nurse, and boarding house manager. Request made to restart IV with ultrasound guidance. Will continue to monitor.
[2019-11-29] VITALS (8 sets, daily range): BP systolic 117–137; BP diastolic 70–92
[2019-11-29] MEDS: ONDANSETRON HCL INJ 2MG/ML 2ML 2 MG/ML VIAL IV PRN ×3 (00:05→21:21)
[2019-11-29] MEDS: MEROPENEM 500MG/ NS 50ML 50 ML IV SCH ×2 (00:05→08:56)
[2019-11-29] MEDS: KETOROLAC TROMETHAMINE 30 MG/ML VIAL IV PRN ×2 (00:06→08:54)
--- NOTE | 2019-11-29 03:46 | Progress Note ---
DATE: 11/28/2019 Medicine Progress Note SUBJECTIVE: The patient reports still having some flank pain, had a fever this morning, but seems to be improving from today. PHYSICAL EXAMINATION: VITAL SIGNS: Temperature 99.1, pulse 96, respiratory rate is 18, blood pressure , pulse ox 100% on room air. GENERAL: In no acute distress. Alert and oriented x3. She is cooperative on exam. PULMONARY: Clear to auscultation bilaterally. No wheezing, rales, or rhonchi. No crackles appreciated. CARDIOVASCULAR: Positive S1 and S2. No murmurs, rubs, or gallops appreciated. ABDOMEN: Soft, nondistended, nontender to palpation. Bowel sounds present. She has mild tender to palpation in the right flank area. MUSCULOSKELETAL: Strength is 5/5 throughout. LABORATORY FINDINGS: Show white count was 18, hemoglobin , hematocrit 32.8, , sodium 139, potassium 3.8, chloride 111, bicarb 17, anion gap of 14, BUN is 5 and creatinine 0.77. LFTs within normal range. MICROBIOLOGY: Urine culture shows Gram-negative bacilli. Blood cultures, no growth to date. IMAGING STUDIES: Nothing new. IMPRESSION: 1. Right pyelonephritis with urinary tract infection. 2. Nausea with decreased oral intake-improving. 3. Leukocytosis, secondary to pyelonephritis. 4. Sepsis and pyelonephritis with leukocytosis. PLAN: At this time, she was febrile this morning. She is currently afebrile. Continue with IV antibiotics. Monitor cultures. Continue with pain control. Continue antibiotics IV Merrem as she still continues to have fever early this morning. Lovenox for DVT prophylaxis. Discussed plan of care with the patient and nursing staff at bedside. MD DU Mendez/MODL /[id number]
--- NOTE | 2019-11-29 04:41 | NUR ---
Pt has complaints of pain at IV site. IV site puffy and tender to touch. IV removed. Tip intact and no damage to catheter noted. Dr. Hammonds notified. New orders received for PICC line placement to continue IV antibiotic therapy.
[2019-11-29] MEDS: TRAMADOL HCL 50 MG TAB PO PRN ×2 (05:39→20:15)
[2019-11-29 07:13] LABS: BASOPHILS % 0.3 % (0.0-1.0); EOSINOPHILS % 0.2 % (0.0-6.0); HEMATOCRIT 30.2 % (34.2-44.1); HEMOGLOBIN 10.6 g/dL (12.0-16.0); LYMPHOCYTES # (AUTO) 0.8 (1.0-3.2); LYMPHOCYTES % 6.9 % (18.0-39.1); MEAN CORPUSCULAR HEMOGLOBIN 29.4 pg (28-32); MEAN CORPUSCULAR HGB CONC 35.1 g/dL (31-35); MEAN CORPUSCULAR VOLUME 83.9 fL (81-99); MONOCYTES % 8.3 % (4.4-11.3); PLATELET COUNT 170 x10e3/uL (140-360); RED CELL DISTRIBUTION WIDTH 13.2 % (11.7-14.4)
--- NOTE | 2019-11-29 07:23 | NUR ---
Pt has complaints of pain to the RUE in the area of the old IV site. Extremity warm to touch and tender. Dr. Hammonds informed. New orders received for RUE doppler to rule out dvt.
[2019-11-29 07:29] LABS: ANION GAP 14.1 mmol/L (8-16); BLOOD UREA NITROGEN < 5 mg/dL (7-26); CALCIUM 8.7 mg/dL (8.4-10.2); CARBON DIOXIDE 18 mmol/L (22-29); CHLORIDE 109 mmol/L (98-107); CREATININE, SERUM 0.67 mg/dL (0.57-1.11); EST GLOMERULAR FILTRATION RATE > 60 ML/MIN (60-); GLUCOSE 133 mg/dL (74-118); POTASSIUM 3.1 mmol/L (3.5-5.1); SODIUM 138 mmol/L (136-145)
[2019-11-29 07:41] LABS: BUN/CREATININE RATIO 7 (6-25)
--- NOTE | 2019-11-29 08:38 | Diagnostic Imaging Report ---
Chest, 1 view, 11/29/2019. History: PICC placement. Comparison: None available. Findings: The cardiomediastinal silhouette and pulmonary vasculature are within normal limits for a portable exam. There is no focal consolidation or pleural effusion. Right upper extremity PICC terminates near the cavoatrial junction. There are no acute osseous or soft tissue abnormalities. Impression: No acute cardiopulmonary abnormality. PICC is in adequate position. Signed by: Kvng Schaefer on 11/29/2019 8:35 AM
[2019-11-29] MEDS: LAMOTRIGINE 50 MG PO SCH ×2 (08:56→16:28)
[2019-11-29] MEDS ORDERED: ONDANSETRON HCL INJ 2MG/ML 2ML 2 MG/ML VIAL IV STA (11:39)
[2019-11-29] MEDS ORDERED: HYDROCODONE/APAP 5MG-325MG TAB PO ONE (11:45)
--- NOTE | 2019-11-29 14:24 | Diagnostic Imaging Report ---
Exam: Head CT without contrast History: Headache, visual disturbance Comparison studies: None Technique: Axial images were obtained from the skull base to the vertex. Coronal and sagittal images reconstructed from the axial data. Dose modulation, iterative reconstruction, and/or weight based adjustment of the mA/kV was utilized to reduce the radiation dose to as low as reasonably achievable. Radiation dose: Total DLP: 921.4 mGy*cm. Estimated effective dose: DLP x 0.015 Intravenous contrast: None Findings: Scalp: No abnormalities. Bones: No fractures, blastic or lytic lesions. Brain sulci: Appropriate for age. Ventricles: Normal in size and configuration. No hydrocephalus. Extra-axial spaces: No masses, no fluid collection. Parenchyma: No abnormal densities. No masses, hemorrhage, acute or chronic vascular insults. Sellar/suprasellar region: No abnormalities. Craniocervical junction: Patent foramen magnum. No Chiari one malformation. Included paranasal sinuses: Clear. Middle ear and mastoid cavities: Clear. IMPRESSION: No abnormalities. Signed by: Dr. Keith Cox M.D. on 11/29/2019 2:20 PM
[2019-11-29] MEDS: CEFTRIAXONE SOD 1 GM/NS 50 ML 50 ML IV SCH (15:38)
[2019-11-29] MEDS: IBUPROFEN 600 MG TAB PO PRN ×2 (15:41→21:21)
[2019-11-29] MEDS: ENOXAPARIN SOD INJ 40 MG/0.4 ML SYR SC SCH (16:41)
[2019-11-30] VITALS: BP 110/66
--- NOTE | 2019-11-30 01:22 | Progress Note ---
DATE: Medicine Progress Note SUBJECTIVE: The patient doing well today with no complaints. She did complain of headache, for which I did a stat CT brain without contrast, found to be negative. PHYSICAL EXAMINATION: VITAL SIGNS: Afebrile. Normotensive. Respiratory rate is good. GENERAL: No acute distress. Alert and oriented x3. Cooperative on examination. PULMONARY: Clear to auscultation bilaterally. No wheezing, no rales, no rhonchi, no crackles appreciated. CARDIOVASCULAR: Positive S1, S2. No murmurs, rubs, or gallops appreciated. ABDOMEN: Soft, nondistended, nontender to palpation. Bowel sounds present. MUSCULOSKELETAL: Strength is 5/5 throughout. No evidence of any muscle deficits on examination. No weakness appreciated. LABORATORY DATA: Labs show white count 11.9, hemoglobin 10.6, hematocrit is 30, platelets of 170. Chemistry; reviewed shows hypokalemia and potassium was replaced. Microbiology, urine culture shows E. coli, is sensitive to cephalosporins, which antibiotics have been rearranged. Blood cultures greater than 48 hours, no growth. DIAGNOSTIC STUDIES: CT brain, no abnormalities. Venous Doppler of the right upper extremity shows no evidence of vein thromboses. IMPRESSION: 1. Right pyelonephritis with underlying urinary tract infection. 2. Nausea with decreased oral intake-improving. 3. Leukocytosis secondary to pyelonephritis-improving. 4. Sepsis with pyelonephritis with leukocytosis. PLAN: At this time, the patient is afebrile. White count improving. Change Merrem to IV Rocephin and identified. Continue same plan of care. Stat CT brain was found to be negative. The patient's pain is better controlled. Continue same plan of care. Monitor closely. Potentially discharge tomorrow. MD DU Mendez/EMBER /[id number]
[2019-11-30 04:00] VITALS: BP 121/92
[2019-11-30] MEDS: ONDANSETRON HCL INJ 2MG/ML 2ML 2 MG/ML VIAL IV PRN ×2 (05:19→12:26)
[2019-11-30] MEDS: IBUPROFEN 600 MG TAB PO PRN ×2 (05:19→12:26)
[2019-11-30 06:25] LABS: BASOPHILS % 0.3 % (0.0-1.0); EOSINOPHILS # (AUTO) 0.1 (0.0-0.4); EOSINOPHILS % 0.7 % (0.0-6.0); HEMATOCRIT 31.1 % (34.2-44.1); HEMOGLOBIN 10.9 g/dL (12.0-16.0); MEAN CORPUSCULAR HEMOGLOBIN 30.7 pg (28-32); MEAN CORPUSCULAR VOLUME 87.6 fL (81-99); MONOCYTES # (AUTO) 0.7 (0.2-0.8); MONOCYTES % 9.8 % (4.4-11.3); NEUTROPHILS # (AUTO) 5.3 (2.1-6.9); NEUTROPHILS % 74.6 % (38.7-80.0); PLATELET COUNT 166 x10e3/uL (140-360); RED BLOOD COUNT 3.55 x10e6/uL (3.6-5.1); RED CELL DISTRIBUTION WIDTH 13.3 % (11.7-14.4)
[2019-11-30 06:41] LABS: ANION GAP 15.5 mmol/L (8-16); BLOOD UREA NITROGEN < 5 mg/dL (7-26); CARBON DIOXIDE 19 mmol/L (22-29); CHLORIDE 110 mmol/L (98-107); CREATININE, SERUM 0.67 mg/dL (0.57-1.11); EST GLOMERULAR FILTRATION RATE > 60 ML/MIN (60-); GLUCOSE 103 mg/dL (74-118); POTASSIUM 3.5 mmol/L (3.5-5.1); SODIUM 141 mmol/L (136-145)
[2019-11-30 06:43] LABS: BUN/CREATININE RATIO 7 (6-25)
[2019-11-30 08:14] VITALS: BP 117/71
[2019-11-30] MEDS: LAMOTRIGINE 50 MG PO SCH (09:00)
[2019-11-30] MEDS: TRAMADOL HCL 50 MG TAB PO PRN (09:30)
[2019-11-30 10:32] VITALS: BP 117/71
--- NOTE | 2019-11-30 12:00 | NUR ---
PT WAS FOUND SITTING ON THE FLOOR IN THE SHOWER AND PT STATED THAT IT IS "THE DARKEST PLACE IN THE ROOM". PT STATED THAT SHE WANTED A NEW NURSE, RN ASKED THE PATIENT TO EXPLAIN WHAT THE PROBLEM WAS. PT STATED THAT THE NURSE NEVER CAME WITH HER MEDICATION. RN STATED TO PATIENT THAT THE MEDICATION WAS DUE AND IF THE PATIENT REQUIRED IT, THEN TO CALL THE RN AND IT WOULD BE ADMINISTERED. PT STATED "I HAVE TO CALL FOR EVERYTHING, I'M TIRED I JUST WANT TO GO HOME". PT INFORMED THAT IF SHE LEFT AMA THAT SHE WOULD NOT BE ABLE TO LEAVE WITH A PRESCRIPTION FOR ANTIBIOTICS. PT KEPT REPEATING THAT SHE "WANTS TO GO HOME". ASKED THE PATIENT IF THERE WAS ANYTHING THAT COULD BE DONE AND IF THE PATIENT WANTED HER MEDICATION. PT STATED NO AND THAT SHE WANTED ANOTHER NURSE. THEN ASKED FOR THE CHARGE NURSE. NOTIFIED CHARGE NURSE AND CHARGE NURSE WENT TO SPEAK WITH PATIENT.
[2019-11-30 12:17] VITALS: BP 137/83
--- NOTE | 2019-11-30 12:30 | NUR ---
BEDSIDE SHIFT REPORT RECEIVED FROM THE DAY SHIFT RN. EDUCATED PT ABOUT FALL PRECAUTIONS. PT VERBALIZED UNDERSTANDING. CALL LIGHT WITH IN EASY REACH. INSTRUCTED PT TO USE CALL LIGHT FOR ALL THE NEEDS. BED IS LOW AND LOCKED. SIDE RAILS X2. PT DENIES NEEDS AT THIS TIME.
[2019-11-30] MEDS: CEFTRIAXONE SOD 1 GM/NS 50 ML 50 ML IV SCH (14:15)
--- NOTE | 2019-11-30 14:30 | NUR ---
VADIM TO D/C PT PER DR. BOBO. REMOVE PICC LINE PER THE
[2019-11-30] MEDS ORDERED: CEFDINIR300 MG PO (14:37)
--- NOTE | 2019-11-30 14:55 | NUR ---
PICC LINE REMOVED PER THE ORDER. TIP INTACT. PRESSURE APPLIED FOR 5 MINS. PT TOLERATED WELL. NO BLEEDING NOTED. PRESSURE DRESSING APPLIED. PT DENIED FURTHER NEEDS.
[2019-11-30 15:00] VITALS: BP_SYST 130; BP_SYST 134; BP_DIAS 80; BP_DIAS 96
--- NOTE | 2019-11-30 15:15 | NUR ---
PT DISCHARGED HOME SAFELY WITH FAMILY MEMBER. PICC LINE REMOVED. TIP INTACT. PRESSURE DRESSING APPLIED. RX GIVEN. D/C INSTRUCTIONS GIVEN AND PT VERBALIZED UNDERSTANDING. PT ESCORTED BY THE TECH VIA WHEEL CHAIR TO THE PRIVATE AUTO AT THE FRONT ENTRANCE. PT DENIED FURTHER NEEDS.
--- NOTE | 2019-12-01 02:41 | Discharge Summary ---
FINAL DISCHARGE DIAGNOSES: 1. Right pyelonephritis with underlying urinary tract infection. 2. Nausea and vomiting-resolved. 3. Leukocytosis secondary to pyelonephritis-resolved. CONSULTANTS: None. PHYSICAL EXAMINATION: VITAL SIGNS: Temperature is 98.6, pulse 62, respiratory rate is 18, blood pressure 130/80, and pulse ox 100% on room air. LABORATORY FINDINGS: White count 7, hemoglobin 10.9, hematocrit 31, and platelets of 166. Chemistry; sodium 141, potassium 3.5, chloride 110, bicarb 19, anion gap of 15, BUN is 5, creatinine is 0.7, glucose is 103. Lactic acid 1.7, calcium is 9. LFTs within normal range. Albumin is 3.8. Urinalysis consistent with UTI. SEROLOGY: Coronavirus not detected. MICROBIOLOGY: Blood cultures were negative. Urine culture showed E coli pansensitive discharged on oral Omnicef. IMAGING STUDIES: CT abdomen and pelvis showed right pyelonephritis. Not significant change from nonspecific right lung base nodule. 4.4 cm adnexal cyst noted. CT of the brain negative. HOSPITAL COURSE: A 24-year-old female, who came into the ED with complaints of right-sided flank pain and underlying dysuria. The patient was found to have pyelonephritis with UTI treated accordingly with IV antibiotic therapy. Blood cultures were negative. Urine cultures were consistent with Escherichia coli and treated accordingly with IV antibiotic therapy. She was discharged on oral Omnicef to complete two total weeks. Urine cultures and sensitivities and identification were notified and the patient was doing well prior to being discharged home. The patient is back to normal baseline. She reports having headaches, had a CT brain which was found to be negative. All her symptoms all resolved prior to being discharged to home. On the day of discharge, vital signs were stable labs reviewed and stable. The patient was seen and evaluated, examined thoroughly on the day of discharge. No other complaints. The patient verbalized understanding and agreed to plan of care to follow up with an outpatient and PCP in 1 week. MEDICATIONS: See med reconciliation form. DISPOSITION: Home. CONDITION: Stable. DIET: Heart healthy. In the event of any worsening symptoms, the patient was advised to come back to the ED for further evaluation. Discharge summary took greater than 35 minutes. MD DU Mendez/TONYL /[id number]
== END 2019-11-30 15:30 | disposition home or self-care (01) | DRG 872 ==
LOC: ER 03:44 → ERHOLD 05:57 → MED/SURG3 13:52
PROVIDERS: ADMIT Internal Medicine; ATTEND Internal Medicine
PROC: 02HV33Z Insertion of Infusion Device into Superior Vena Cava, Percutaneous Approach (ICD-10-PCS; principal; 2019-11-29)
DX: A41.9 Sepsis, unspecified organism (principal); N12 Tubulo-interstitial nephritis, not specified as acute or chronic; B96.20 Unspecified Escherichia coli [E. coli] as the cause of diseases classified elsewhere; Z11.59 Encounter for screening for other viral diseases; F41.9 Anxiety disorder, unspecified; F32.9 Major depressive disorder, single episode, unspecified
CPT/HCPCS: 36415; 36569; 70450; 71045; 74177; 80048; 80053; 81001; 81025; 83605; 85025; 87040; 87086; 87186; 93971; 99284; J0692; J0696; J1170; J1650; J1885; J2270; J2405; J7030; Q9967; U0002

== ENCOUNTER 2020-06-17 13:27 | Emergency (ER) | payer OTHER ==
[~2020-06-17] VITALS: Ht 165.1 cm; Wt 81.6 kg
[~2020-06-17 13:27] MED LIST changes: +CEFDINIR300 MG PO
[2020-06-17] MEDS ORDERED: DONNATAL/LIDOCAINE/MAALOX 30 ML SUSP PO NR (13:34)
[2020-06-17] MEDS ORDERED: PANTOPRAZOLE 40 MG 10ML VIAL IV NR (13:34)
[2020-06-17] MEDS ORDERED: ONDANSETRON HCL INJ 2MG/ML 2ML 2 MG/ML VIAL IV NR (13:34)
[2020-06-17] MEDS ORDERED: FAMOTIDINE 20 MG/2 ML VIAL IV NR (13:34)
[2020-06-17 13:45] LABS: BASOPHILS % 0.2 % (0.0-1.0); HEMATOCRIT 39.7 % (34.2-44.1); HEMOGLOBIN 14.4 g/dL (12.0-16.0); LYMPHOCYTES # (AUTO) 1.6 (1.0-3.2); LYMPHOCYTES % 11.8 % (18.0-39.1); MEAN CORPUSCULAR HEMOGLOBIN 30.4 pg (28-32); MEAN CORPUSCULAR HGB CONC 36.3 g/dL (31-35); MEAN CORPUSCULAR VOLUME 83.9 fL (81-99); MONOCYTES # (AUTO) 0.4 (0.2-0.8); NEUTROPHILS # (AUTO) 11.3 (2.1-6.9); NEUTROPHILS % 84.3 % (38.7-80.0); PLATELET COUNT 288 x10e3/uL (140-360); RED BLOOD COUNT 4.73 x10e6/uL (3.6-5.1); RED CELL DISTRIBUTION WIDTH 13.6 % (11.7-14.4)
[2020-06-17 14:02] LABS: ALANINE AMINOTRANSFERASE 20 IU/L (0-55); ALBUMIN 4.8 g/dL (3.5-5.0); ALBUMIN/GLOBULIN RATIO 1.2 (0.8-2.0); ALKALINE PHOSPHATASE 81 IU/L (40-150); ANION GAP 21.8 mmol/L (8-16); BLOOD UREA NITROGEN 10 mg/dL (7-26); BUN/CREATININE RATIO 13 (6-25); CALCIUM 9.5 mg/dL (8.4-10.2); CARBON DIOXIDE 17 mmol/L (22-29); CHLORIDE 109 mmol/L (98-107); CREATININE, SERUM 0.75 mg/dL (0.57-1.11); EST GLOMERULAR FILTRATION RATE > 60 ML/MIN (60-); GLUCOSE 130 mg/dL (74-118); POTASSIUM 3.8 mmol/L (3.5-5.1); SODIUM 144 mmol/L (136-145)
[2020-06-17 14:03] LABS: CLARITY,URINE HAZY (CLEAR); COLOR,URINE YELLOW (YELLOW); KETONES,URINE 1+ (NEGATIVE); LEUKOCYTE ESTERASE ,URINE TRACE (NEGATIVE); NITRITE,URINE NEGATIVE (NEGATIVE); PROTEIN,URINE DIPSTICK 1+ (NEGATIVE); URINE UROBILINOGEN 0.2 mg/dL (0.2 - 1)
[2020-06-17 14:14] LABS: LIPASE 21 U/L (8-78)
[2020-06-17] MEDS ORDERED: LIDOCAINE VISC 2% SOLN 15 ML UDC PO ONE (14:15)
[2020-06-17] MEDS ORDERED: MAGNESIUM/ALUMINUM/SIMETHICONE 30 ML UDC PO ONE (14:15)
[2020-06-17 14:25] LABS: BACTERIA,URINE FEW /HPF; EPITHELIAL CELLS,URINE MODERATE /LPF; RBC,URINE 0-5 /HPF (0-5); WBC,URINE (MAN) 0-5 /HPF (0-5)
[2020-06-17] MEDS ORDERED: BELLADONNA ALK/PHENOBARBITAL 5 ML UDC PO ONE (14:30)
[2020-06-17] MEDS ORDERED: CARAFATE1 GM/10 ML PO (14:51)
[2020-06-17 15:15] VITALS: BP 110/70
== END 2020-06-17 15:15 | disposition home or self-care (01) ==
LOC: ER 13:45
DX: R10.13 Epigastric pain (principal); R11.2 Nausea with vomiting, unspecified; F41.9 Anxiety disorder, unspecified; F31.9 Bipolar disorder, unspecified
CPT/HCPCS: 36415; 80053; 81001; 83690; 84702; 85025; 99283; J2405